=== PATIENT | female | born 1995 | race Caucasian/White ===

== ENCOUNTER 2019-05-20 20:23 | Emergency (ER) | payer SELFPAY ==
[2019-05-20 21:06] VITALS: O2SAT 100
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
[2019-05-20 23:15] VITALS: BP 126/82; PULSE 81
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
== END 2019-05-20 23:15 | disposition home or self-care (01) ==
LOC: ED 20:23
DX: S01.81XA Laceration without foreign body of other part of head, initial encounter (principal); V43.62XA Car passenger injured in collision with other type car in traffic accident, initial encounter; Y93.89 Activity, other specified; Y92.89 Other specified places as the place of occurrence of the external cause; M54.2 Cervicalgia; R51 Headache; J34.89 Other specified disorders of nose and nasal sinuses; M25.562 Pain in left knee
CPT/HCPCS: 70450; 70486; 72125; 73562; 99284